=== PATIENT | male | born 1960 | race African-American/Black ===

== ENCOUNTER → 2016-06-21 | Emergency (ER) | payer OTHER ==
[~2016-06-21] VITALS: Ht 177.8 cm; Wt 81.6 kg
[~2016-06-21] MED LIST: AMLODIPINE BESYLATE 5 MG TABLET ONE; AMLODIPINE BESYLATE 5 MG TABLET PO ONE; IV NS 0.9% 1,000 ML BAG IV ONE; IV NS 0.9% 1,000 ML ONE; IV SET PRIMARY 1 EA INFUS.SET MC ONE; IV SET PRIMARY PUMP SET 1 EA INFUS.SET MC ONE; LORAZEPAM INJ 2 MG/ML VIAL IV ONE; LORAZEPAM INJ 2 MG/ML VIAL ONE; Magnesium 1 GM/2 ML VIAL IV ONE; Magnesium 1GM/D5W 100ML PREMIX 200 ML IV ONE; QUETIAPINE FUMARATE 100 MG TABLET ONE; QUETIAPINE FUMARATE 100 MG TABLET PO SCH; SECONDARY IV SET 1 EA INFUS.SET MC ONE
[2016-06-21 07:33] VITALS: BP 153/92
== END | disposition home or self-care (01) ==
LOC: ER 03:46
DX: F10.239 Alcohol dependence with withdrawal, unspecified (principal); I10 Essential (primary) hypertension; F32.9 Major depressive disorder, single episode, unspecified; Z88.8 Allergy status to other drugs, medicaments and biological substances; Z88.6 Allergy status to analgesic agent; R73.09 Other abnormal glucose; Z91.14 Patient's other noncompliance with medication regimen
CPT/HCPCS: 82962 ×2; 96361; 96374; 96375; 99284; A4606; J2060; J3475; J7030; Z7610

== ENCOUNTER 2018-11-02 18:48 | Emergency (ER) | payer OTHER ==
[~2018-11-02] VITALS: Ht 182.9 cm; Wt 127.0 kg
--- NOTE | 2018-11-02 19:41 | NUR ---
MARIS WALKED IN TO ER. AAOX4. NAD NOTED, BREATHING EVEN AND UNLABORED. AMUBULATORY. PT IS PLEASANT, COMPLAINT AND COOPERATIVE. PT CAME IN FOR SUICIDAL IDEATION EVIDENCED BY PT VERBALIZING THAT HE HEARS SCREAMING VOICES ORDERING HIM TO HURT HIMSELF BY RUNNING INTO TRAFFIC AND OVERDOSE WITH PILLS FOR THE PAST WEEK. PT DENIES HI OR PLANS TO HURTS OTHERS. PT REPORTS BEING OFF HIS MEDICATION, SEROQUEL AND PROZAC FOR THE PAST 3 WEEKS. PT TO ER BED 14. STRIPPED OF PRESONAL BELONGINGS AND PLACED UNDER THE SINK BY THE NURSING STATION. SECURITY AT BEDSIDE FOR WANDING. SITTER AT BEDSIDE PART OF SUICIDE PRECAUTION. AWAITING MD MARIA M VORA.
--- NOTE | 2018-11-02 19:41 | NUR ---
Note undone in EDM - 11/02/18 at 1945 by ARIK MARIS WALKED IN TO ER. AAOX4. NAD NOTED, BREATHING EVEN AND UNLABORED. AMUBULATORY. PT IS PLEASANT, COMPLAINT AND COOPERATIVE. PT CAME IN FOR SUICIDAL IDEATION EVIDENCED BY PT VERBALIZING THAT HE HEARS SCREAMING VOICES ORDERING HIM TO HURT HIMSELF BY RUNNING INTO TRAFFIC AND OVERDOSE WITH PILLS FOR THE PAST WEEK. PT REPORTS BEING OFF HIS MEDICATION, SEROQUEL AND PROZAC FOR THE PAST 3 WEEKS. PT TO ER BED 14. STRIPPED OF PRESONAL BELONGINGS AND PLACED UNDER THE SINK BY THE NURSING STATION. SECURITY AT BEDSIDE FOR WANDING. SITTER AT BEDSIDE PART OF SUICIDE PRECAUTION. AWAITING MD MARIA M VORA.
[2018-11-02 20:09] LABS: BASOPHILS # (AUTO) 0.1 /CMM (0.0-0.2); BASOPHILS % (AUTO) 1.1 % (0.0-2.0); EOSINOPHILS % (AUTO) 3.9 % (0.0-6.0); HEMATOCRIT 43 % (39-51); HEMOGLOBIN 14.4 g/dL (13.5-17.5); LYMPHOCYTES # (AUTO) 3.1 /CMM (0.8-4.8); LYMPHOCYTES % (AUTO) 32.9 % (20.0-44.0); MEAN CORPUSCULAR HGB CONC 33 g/dl (31.0-36.0); MEAN CORPUSCULAR VOLUME 86 fL (80-96); MONOCYTES # (AUTO) 0.6 /CMM (0.1-1.30); MONOCYTES % (AUTO) 6.3 % (2.0-12.0); NEUTROPHILS # (AUTO) 5.3 /CMM (1.8-8.9); NEUTROPHILS % (AUTO) 55.8 % (43.0-81.0); PLATELET COUNT (AUTO) 294 /CMM (150-450); RED BLOOD CELL COUNT(AUTO) 5.04 MIL/uL (4.5-6.0); WHITE BLOOD COUNT (AUTO) 9.4 K/uL (4.3-11.0)
[2018-11-02 20:12] LABS: APPEARANCE,URINE Clear (CLEAR); BILIRUBIN,URINE Negative (NEGATIVE); BLOOD, URINE Negative Ery/uL (NEGATIVE); COLOR,URINE Yellow (YELLOW); KETONES,URINE Negative (NEGATIVE); LEUKOCYTE ESTERASE ,URINE Negative (NEGATIVE); NITRITE, URINE Negative (NEGATIVE); PROTEIN,URINE Negative (NEGATIVE); UGLUCOSE Negative (NEGATIVE); UROBILINOGEN,URINE 0.2 EU/dL (0.2)
--- NOTE | 2018-11-02 20:30 | NUR ---
PT PROVIDED WITH FOOD.
[2018-11-02 21:45] LABS: CARBON DIOXIDE 25 mmol/L (21-32); CHLORIDE 101 mmol/L (98-107); CREATININE 0.9 mg/dL (0.6-1.3); GLUCOSE 97 mg/dL (74-106); SODIUM SERUM 136 mmol/L (136-145); UREA NITROGEN, BLOOD 13 mg/dL (7-18)
[2018-11-02 21:56] LABS: ACETAMINOPHEN < 5 ug/ml (10-30); ALANINE AMINOTRANSFERASE 28 U/L (12-78); ALBUMIN 3.4 g/dL (3.4-5.0); ALKALINE PHOSPHATASE 82 U/L (46-116); ASPARTATE AMINOTRANSFERASE 22 U/L (15-37); BILIRUBIN,TOTAL 0.1 mg/dL (0.2-1.0); SALICYLATE 4.1 mg/dL (2.8-20.0); TOTAL PROTEIN, SERUM 7.8 g/dL (6.4-8.2)
[2018-11-02 22:04] LABS: ALCOHOL, BLOOD 80 mg/dL (0-0)
--- NOTE | 2018-11-02 22:14 | NUR ---
OPERATOR CONTROL ROOM ART ETA 1 HR
--- NOTE | 2018-11-02 23:14 | NUR ---
ADRIANA LAU LCSW AT BEDSIDE FOR EVAL.
--- NOTE | 2018-11-03 00:38 | NUR ---
PT ACCEPTED TO [facility] MD: DR. CONTRERAS AND DR. CHOUDHURY BED ASSIGNMENT: [id number]
--- NOTE | 2018-11-03 00:45 | NUR ---
GAVE REPORT TO SHELTON FROM [facility] FOR FRANNIE
--- NOTE | 2018-11-03 01:05 | NUR ---
CONTACTED CALL THE CAR FOR TRANSPORTATION. [facility] ETA 0200. TRIP NUMBER [id number]
[2018-11-03 01:43] VITALS: BP 148/82
--- NOTE | 2018-11-03 01:46 | NUR ---
GAVE REPORT TO [facility] FOR TRANSPORTATION FRANNIE
== END 2018-11-03 01:55 ==
LOC: ER 18:48
DX: R45.851 Suicidal ideations (principal); I10 Essential (primary) hypertension; F17.210 Nicotine dependence, cigarettes, uncomplicated; Z88.6 Allergy status to analgesic agent; Z88.8 Allergy status to other drugs, medicaments and biological substances; Z60.2 Problems related to living alone
CPT/HCPCS: 36415; 80048; 80076; 80305; 80307; 80329; 81001; 85025; 99285; G0480; 81000-TC

== ENCOUNTER 2020-08-08 11:45 | Emergency (ER) | payer OTHER ==
[~2020-08-08] VITALS: Ht 182.9 cm; Wt 112.9 kg
--- NOTE | 2020-08-08 12:10 | NUR ---
BIBS TO ER BED 13. AAOX4. NOT IN RESP DISTRESS. AMBULATORY. CAME IN SEEKING VOLUNTARY ADMISSION FOR HAVING SUICIDAL IDEATIONS. PER PT, HE HAS BEEN HEARING VOICES FOR AA MONTH TELLING HIM TO HURT HIM SELF. PT HAVE THOUGHTS OF RUNNING INTO TRAFFIC. PT ALSO REPORTS THAT HE HAS BEEN OFF HIS MEDICATION FOR MONTHS. PT DENIES HI. PT IS COOPERATIVE, CALM AND COMPLIANT. PT IS GOWNED, BELONGINGS PLACED IN LOCKER, VISUAL BODY CHECK AND 1:1 SITTER AT BEDSIDE. URINE COLLECTED. AWAITING MD FOR EVAL.
[2020-08-08 12:31] LABS: BASOPHILS # (AUTO) 0.1 /CMM (0.0-0.2); BASOPHILS % (AUTO) 1.2 % (0.0-2.0); EOSINOPHILS % (AUTO) 6.2 % (0.0-6.0); HEMATOCRIT 40 % (39-51); HEMOGLOBIN 12.9 g/dL (13.5-17.5); LYMPHOCYTES # (AUTO) 2.6 /CMM (0.8-4.8); LYMPHOCYTES % (AUTO) 27.9 % (20.0-44.0); MEAN CORPUSCULAR HGB CONC 33 g/dl (31.0-36.0); MEAN CORPUSCULAR VOLUME 95 fL (80-96); MONOCYTES # (AUTO) 0.7 /CMM (0.1-1.30); MONOCYTES % (AUTO) 7.9 % (2.0-12.0); NEUTROPHILS # (AUTO) 5.2 /CMM (1.8-8.9); NEUTROPHILS % (AUTO) 56.8 % (43.0-81.0); PLATELET COUNT (AUTO) 228 /CMM (150-450); RED BLOOD CELL COUNT(AUTO) 4.17 MIL/uL (4.5-6.0); WHITE BLOOD COUNT (AUTO) 9.2 K/uL (4.3-11.0)
[2020-08-08 12:36] LABS: BILIRUBIN,URINE Negative (NEGATIVE); COLOR,URINE YELLOW (YELLOW); LEUKOCYTE ESTERASE ,URINE Negative (NEGATIVE); NITRITE, URINE Negative (NEGATIVE); PH,URINE 5.5 (5.0-8.0); PROTEIN,URINE Negative (NEGATIVE); UGLUCOSE Negative (NEGATIVE); UROBILINOGEN,URINE 0.2 EU/dL (0.2)
[2020-08-08 12:38] LABS: CALCIUM, SERUM 8.8 mg/dL (8.5-10.1); CREATININE 0.7 mg/dL (0.6-1.3); POTASSIUM 4.1 mmol/L (3.5-5.1)
[2020-08-08 12:45] LABS: ALBUMIN 3.1 g/dL (3.4-5.0); BILIRUBIN,DIRECT 0.1 mg/dL (0.0-0.2); BILIRUBIN,TOTAL 0.1 mg/dL (0.2-1.0); TOTAL PROTEIN, SERUM 7.6 g/dL (6.4-8.2)
--- NOTE | 2020-08-08 13:06 | NUR ---
LAB CALLED - COVID NEGATIVE
--- NOTE | 2020-08-08 14:27 | NUR ---
SOCIAL ORKER AT BEDSIDE
--- NOTE | 2020-08-08 14:30 | NUR ---
"SS Consult : SS consult requested for: SI+. REX met with pt. bedside. The pt. is a 59 year old Black male seeking medical attention for SI. The pt. SI a&0 x 4. Pt. states he has SI with plan to drink alcohol and run into traffic. REX assessed pt.s mental health Hx. Pt. stated he has been diagnosed with Schizoaffective disorder and has stopped taking prescribed psychotropic medication because I thought I was fine. REX offered pt. psych placement for treatment and pt. is agreeable. Pt. states he lives with a friend at [address] [facility] [address]. Pt. stated he has no support system as all his family has . Pt. stated he drink alcohol daily and does not feel it is a problem for him. Pt. denies HI and denies hallucinations. Plan: REX referred pt. to [facility] [[address] [place] [address] ] for inpatient psychiatric treatment. Substance Abuse resources provided included: [facility] Substance Abuse Self-Helpline ([facility]) ; CRI [facility]LP [address] [facility] [place] [address] ; [facility] [address] [facility] [address] ; [facility] Rehabilitation Program [address] [facility] [address] ; [facility] [phone] ; [facility] Treatment [facility] 4940 [facility] [address] ; [facility] [address] [facility] [address] ; [facility] Substance Abuse Helpline([facility])-[facility] ; [facility] ; [facility] [place]; [facility] [place]; [facility] [place]; [facility] [place]; [facility] [place]; [facility]; [facility]; [facility], [facility]. [facility]; Alcoholics Anonymous -SFV; Jc-Plmg-Mszsptm ; Marijuana Anonymous -SFV; Narcotics Anonymous www.na.org; Year-round shelters: [place] [facility] [address] [place], [place] [phone] ; [facility] [address] [place] [address]; [place] [facility] Bfjjddm6135 [facility] [address] Winter Shelters: [facility] Provider: Cl[facility] Address: [address] [place], [address] # of Beds: 47 Population Served: [facility] 6 | [facility] Edna [facility] Provider: [facility] Last Address: [address], [address] # of Beds: 66 Population Served: [facility] [employer]uel [place] Provider: First to Serve Address: [address] [facility], [address] # of Beds: 56 Population Served: [facility] Javy DaryKartik [place] Provider: [facility]/Ms. Valenzuel[facility] House Address: [address] [facility], [address] # of Beds: 49 Population Served: [facility] 8 | [facility] Provider: First to Serve Address: [address] [facility], [address] # of Beds: 37 Population Served: [facility] Hygiene: [facility] Center[facility]: [address] [address] ; [facility] [address] [facility] ; [facility] [address], [place] . Food Resources: [facility] at [facility]- [address] [place]; Meet Each Need with Dignity ([facility]) [address] [place]; [facility] 1517 [facility]; [facility] [address] [facility]. Mental Health resources provided: [facility] [address] [place], [place] [address] ; [facility] [address] [facility] [address], [place], [place] [phone] ; [facility] [address] [place], [place] [phone] ; [facility] [place], [place] [phone] Healthcare Clinics: [facility] [address] [facility], [address] [place]. [place] ; [facility] [address] [facility] [address] [place] [address]; [facility] Health [place] [address] [facility]. [place] [phone] Counseling--Outpatient [facility] [address] [facility], [place] [address] (Specializes in in-depth psychotherapy for emotional distress: anxiety, depression, interpersonal conflicts, life transitions, childhood abuse) [facility] [address] [place], [place] [phone] (Assist with solving problem marital difficulties, separation & divorce, aging parents, & grief, chronic & terminal illness) [facility] [address] [place], [place] [phone] (Deal with loss & grief, anxiety, marital difficulties) Homebound/Mental Health Services [address] [facility], [address] [place] [address] (Provide in-home mental services to people who are incapable of leaving their homes) [facility]eds of the Elderly Senior Service/Resource Center [address] [place] [address] [facility] [address] [place], [place] [address] PSYCHIATRIC OUTPATIENT SERVICES [facility] Partial Hospitalization and Intensive Outpatient Program (Managed Care and Jeffrey Only)[address] [facility] [phone] [facility] Partial Hospitalization and Outpatient Yijaeqw[address] [place], [place] [phone] [facility] Partial Hospitalization and Outpatient Znngacy[address] [place], [place] [phone] [facility] Ydm[address] [place], [place] [phone] [facility] Partial Hospitalization and Outpatient Sjwyteq14381 [facility] [place], [phone] "
[2020-08-08] MEDS ORDERED: ACETAMINOPHEN 325 MG TABLET ONE (15:08)
[2020-08-08] MEDS ORDERED: ACETAMINOPHEN 325 MG TABLET PO ONE (15:30)
--- NOTE | 2020-08-08 15:48 | NUR ---
REPORT GIVEN TO FESTUS FROM [facility] [place] [facility] [phone]
--- NOTE | 2020-08-08 16:09 | NUR ---
CALLED [facility] 45 MINS. PER ANURADHA
[2020-08-08 16:50] VITALS: BP 147/81
--- NOTE | 2020-08-08 17:33 | NUR ---
PT LEFT ON GURNEY VIA AMBULANCE WITH 2 EMT AT BEDSIDE ON STABLE CONDITION. NAD NOTED. PT IS AMBULATORY. REPORT GIVEN TO AMBULANCE STAFF. PT'S BELONGING WAS GIVEN TO PROCESS MACHINE OPERATOR.
== END 2020-08-08 17:33 ==
LOC: ER 11:51
DX: R45.851 Suicidal ideations (principal); I10 Essential (primary) hypertension; Z88.8 Allergy status to other drugs, medicaments and biological substances; Z20.822 Contact with and (suspected) exposure to COVID-19; F17.200 Nicotine dependence, unspecified, uncomplicated; Z86.59 Personal history of other mental and behavioral disorders
CPT/HCPCS: 36415; 80048; 80076; 80299; 80307; 80320; 81003; 85025; 87426; 99285; C9803; G0480

== ENCOUNTER 2020-12-28 15:22 | Emergency (ER) | payer OTHER ==
[~2020-12-28] VITALS: Ht 182.9 cm; Wt 113.4 kg
--- NOTE | 2020-12-28 15:22 | NUR ---
PT BIB SELF C/O SI PLAN IS TO RUN INTO THE TRAFFIC, REQUESTING VOLUNTARY PSYCH ADMISSION FOR [facility]. PT IS AAOX4, NOT IN RESPIRATORY DISTRESS, V/S STABLE, SITTER AT BEDSIDE. WILL CONTINUE TO MONITOR.
--- NOTE | 2020-12-28 15:52 | NUR ---
PT SEEN AND EXAMINED BY .
--- NOTE | 2020-12-28 15:59 | NUR ---
URINE SPECIMEN COLLECTED AND SENT TO LAB.
--- NOTE | 2020-12-28 16:08 | NUR ---
ER PHLEB AT BEDSIDE FOR BLOOD DRAW.
--- NOTE | 2020-12-28 16:11 | NUR ---
COVID SPECIMEN OBTAINED AND SENT TO LAB.
[2020-12-28 16:28] LABS: BASOPHILS # (AUTO) 0.1 K/uL (0.0-0.2); BASOPHILS % (AUTO) 0.9 % (0.0-2.0); EOSINOPHILS % (AUTO) 2.8 % (0.0-6.0); HEMATOCRIT 38 % (39-51); HEMOGLOBIN 12.7 g/dL (13.5-17.5); LYMPHOCYTES # (AUTO) 2.9 K/uL (0.8-4.8); LYMPHOCYTES % (AUTO) 50.3 % (20.0-44.0); MEAN CORPUSCULAR HGB CONC 33 g/dl (31.0-36.0); MEAN CORPUSCULAR VOLUME 86 fL (80-96); MONOCYTES # (AUTO) 0.4 K/uL (0.1-1.30); MONOCYTES % (AUTO) 6.5 % (2.0-12.0); NEUTROPHILS # (AUTO) 2.3 K/uL (1.8-8.9); NEUTROPHILS % (AUTO) 39.5 % (43.0-81.0); PLATELET COUNT (AUTO) 128 K/uL (150-450); RED BLOOD CELL COUNT(AUTO) 4.47 MIL/uL (4.5-6.0); WHITE BLOOD COUNT (AUTO) 5.7 K/uL (4.3-11.0)
[2020-12-28 16:43] LABS: BILIRUBIN,URINE SMALL (NEGATIVE); COLOR,URINE YELLOW (YELLOW); LEUKOCYTE ESTERASE ,URINE NEGATIVE (NEGATIVE); NITRITE, URINE NEGATIVE (NEGATIVE); PROTEIN,URINE NEGATIVE (NEGATIVE); UGLUCOSE NEGATIVE (NEGATIVE)
[2020-12-28 16:50] LABS: CALCIUM, SERUM 8.7 mg/dL (8.5-10.1); CARBON DIOXIDE 21 mmol/L (21-32); CHLORIDE 101 mmol/L (98-107); CREATININE 0.8 mg/dL (0.6-1.3); GLUCOSE 82 mg/dL (74-106); POTASSIUM 4.1 mmol/L (3.5-5.1); SODIUM SERUM 136 mmol/L (136-145); UREA NITROGEN, BLOOD 12 mg/dL (7-18)
[2020-12-28 16:53] LABS: ALANINE AMINOTRANSFERASE 51 U/L (12-78); ALBUMIN 3.4 g/dL (3.4-5.0); ALCOHOL, BLOOD 138 mg/dL (0-0); ALKALINE PHOSPHATASE 73 U/L (46-116); ASPARTATE AMINOTRANSFERASE 52 U/L (15-37); BILIRUBIN,DIRECT 0.2 mg/dL (0.0-0.2); BILIRUBIN,TOTAL 0.5 mg/dL (0.2-1.0); TOTAL PROTEIN, SERUM 7.8 g/dL (6.4-8.2)
[2020-12-28 16:54] LABS: BACTERIA,URINE RARE /HPF (None Seen); MUCUS,URINE Many /LPF (None Seen); SQUAMOUS EPITHELIAL CELL,UR 0-2 /HPF (None Seen)
[2020-12-28 16:56] LABS: ACETAMINOPHEN < 0 ug/ml (10-30)
--- NOTE | 2020-12-28 19:26 | NUR ---
CLINICALS WERE FAXED TO [facility]
[2020-12-28] MEDS ORDERED: MAG HYDROX/AL HYDROX/SIMETH 30 ML UDC PO ONE (21:00)
[2020-12-28] MEDS ORDERED: LIDOCAINE VISCOUS 2% UD 15 ML UDC MM ONE (21:00)
[2020-12-28] MEDS ORDERED: LIDOCAINE VISCOUS 2% UD 15 ML UDC ONE (21:56)
[2020-12-28] MEDS ORDERED: MAG HYDROX/AL HYDROX/SIMETH 30 ML UDC ONE (21:57)
--- NOTE | 2020-12-28 23:34 | NUR ---
CALLED [facility] FOR UPDATE, STILL WAITING FOR REVIEW FROM CLERICAL ASSOCIATE
--- NOTE | 2020-12-29 00:51 | NUR ---
PT ACCEPTED [facility] UNDER THE CARE OF DR. GOULD. CALL [phone] FOR REPORT.
--- NOTE | 2020-12-29 01:10 | NUR ---
CALLED [facility], NO TRANSPORTS UNTIL NOON.
--- NOTE | 2020-12-29 01:11 | NUR ---
CALLED [facility], NO TRANSPORTS UNTIL 0700.
--- NOTE | 2020-12-29 01:30 | NUR ---
CALLED [facility] FOR TRANSPORTATION TO [facility] [place]. TERRAZZO POLISHER HELPER WILL CALL BACK WITH ETA. RES#[id number]
--- NOTE | 2020-12-29 01:43 | NUR ---
[facility] ETA 0313
--- NOTE | 2020-12-29 03:34 | NUR ---
report given to VICTORINO Villagomez cytotechnologist supervisor
[2020-12-29 03:35] VITALS: BP 163/92
--- NOTE | 2020-12-29 03:45 | NUR ---
GAVE REPORT TO EMS
== END 2020-12-29 03:35 ==
LOC: ER 15:28
DX: R45.851 Suicidal ideations (principal); Z59.0 Homelessness; F10.129 Alcohol abuse with intoxication, unspecified; F12.90 Cannabis use, unspecified, uncomplicated; Y90.6 Blood alcohol level of 120-199 mg/100 ml; Z20.822 Contact with and (suspected) exposure to COVID-19
CPT/HCPCS: 36415; 80048; 80076; 80143; 80307; 80320; 81001; 83605; 85025; 87426; 99285; C9803; G0480

== ENCOUNTER 2021-06-01 07:25 | Emergency (ER) | payer OTHER ==
[~2021-06-01] VITALS: Ht 182.9 cm; Wt 108.9 kg
[2021-06-01 09:22] LABS: BASOPHILS % (AUTO) 0.8 % (0.0-2.0); EOSINOPHILS % (AUTO) 1.4 % (0.0-6.0); HEMATOCRIT 41 % (39-51); HEMOGLOBIN 13.4 g/dL (13.5-17.5); LYMPHOCYTES # (AUTO) 1.6 K/uL (0.8-4.8); LYMPHOCYTES % (AUTO) 28.6 % (20.0-44.0); MEAN CORPUSCULAR HGB CONC 33 g/dl (31.0-36.0); MEAN CORPUSCULAR VOLUME 89 fL (80-96); MONOCYTES # (AUTO) 0.4 K/uL (0.1-1.30); MONOCYTES % (AUTO) 7.5 % (2.0-12.0); NEUTROPHILS # (AUTO) 3.5 K/uL (1.8-8.9); NEUTROPHILS % (AUTO) 61.7 % (43.0-81.0); PLATELET COUNT (AUTO) 299 K/uL (150-450); RED BLOOD CELL COUNT(AUTO) 4.63 MIL/uL (4.5-6.0); WHITE BLOOD COUNT (AUTO) 5.6 K/uL (4.3-11.0)
[2021-06-01 09:27] LABS: BILIRUBIN,URINE SMALL (NEGATIVE); COLOR,URINE YELLOW (YELLOW); LEUKOCYTE ESTERASE ,URINE NEGATIVE (NEGATIVE); NITRITE, URINE NEGATIVE (NEGATIVE); PH,URINE 5.5 (5.0-8.0); PROTEIN,URINE 30 mg/dl (NEGATIVE); UGLUCOSE NEGATIVE (NEGATIVE)
[2021-06-01 09:39] LABS: CALCIUM, SERUM 9.1 mg/dL (8.5-10.1); CARBON DIOXIDE 22 mmol/L (21-32); CHLORIDE 95 mmol/L (98-107); CREATININE 0.8 mg/dL (0.6-1.3); GLUCOSE 105 mg/dL (74-106); POTASSIUM 4.4 mmol/L (3.5-5.1); SODIUM SERUM 133 mmol/L (136-145); UREA NITROGEN, BLOOD 17 mg/dL (7-18)
[2021-06-01 09:44] LABS: ALANINE AMINOTRANSFERASE 42 U/L (12-78); ALBUMIN 3.5 g/dL (3.4-5.0); ALCOHOL, BLOOD 74 mg/dL (0-0); ALKALINE PHOSPHATASE 98 U/L (46-116); ASPARTATE AMINOTRANSFERASE 34 U/L (15-37); BILIRUBIN,DIRECT 0.1 mg/dL (0.0-0.2); BILIRUBIN,TOTAL 0.3 mg/dL (0.2-1.0); TOTAL PROTEIN, SERUM 8.3 g/dL (6.4-8.2)
[2021-06-01 09:48] LABS: ACETAMINOPHEN < 2 ug/ml (10-30)
[2021-06-01 09:52] LABS: BACTERIA,URINE Rare /HPF (None Seen); RBC,URINE NONE SEEN /HPF (0-2); SQUAMOUS EPITHELIAL CELL,UR Few /HPF (None Seen); WBC,URINE NONE SEEN /HPF (0-3)
[2021-06-01] MEDS ORDERED: LORAZEPAM 1 MG TABLET PO ONE ×2 (11:00→14:00)
[2021-06-01] MEDS ORDERED: LORAZEPAM 1 MG TABLET ONE ×2 (11:07→14:13)
[2021-06-01 22:30] VITALS: BP 147/56
== END 2021-06-01 22:40 ==
LOC: ER 07:27
DX: R45.851 Suicidal ideations (principal); F12.10 Cannabis abuse, uncomplicated; Z20.822 Contact with and (suspected) exposure to COVID-19; F25.9 Schizoaffective disorder, unspecified; I10 Essential (primary) hypertension; F10.10 Alcohol abuse, uncomplicated; Y90.3 Blood alcohol level of 60-79 mg/100 ml
CPT/HCPCS: 36415; 80048; 80076; 80143; 80307; 80320; 81001; 85025; 87426; 99285; C9803; G0480

== ENCOUNTER 2022-03-01 12:15 | Emergency (ER) | payer OTHER ==
[~2022-03-01] VITALS: Ht 182.9 cm; Wt 115.7 kg
--- NOTE | 2022-03-01 12:25 | NUR ---
RAPID COVID SWAB DONE AND SENT TO LAB
--- NOTE | 2022-03-01 12:30 | NUR ---
PATIENT WANDED BY SECURITY, BELONGINGS TO PATIENT LOCKER. CHANGED INTO HOSPITAL GOWN.
[2022-03-01 12:55] LABS: BASOPHILS # (AUTO) 0.1 K/uL (0.0-0.2); BASOPHILS % (AUTO) 0.9 % (0.0-2.0); EOSINOPHILS % (AUTO) 0.2 % (0.0-6.0); HEMATOCRIT 40 % (39-51); HEMOGLOBIN 13.3 g/dL (13.5-17.5); LYMPHOCYTES # (AUTO) 2.7 K/uL (0.8-4.8); LYMPHOCYTES % (AUTO) 37.5 % (20.0-44.0); MEAN CORPUSCULAR HGB CONC 33 g/dl (31.0-36.0); MEAN CORPUSCULAR VOLUME 84 fL (80-96); MONOCYTES # (AUTO) 0.5 K/uL (0.1-1.30); MONOCYTES % (AUTO) 7.2 % (2.0-12.0); NEUTROPHILS # (AUTO) 3.9 K/uL (1.8-8.9); NEUTROPHILS % (AUTO) 54.2 % (43.0-81.0); PLATELET COUNT (AUTO) 313 K/uL (150-450); RED BLOOD CELL COUNT(AUTO) 4.74 MIL/uL (4.5-6.0); WHITE BLOOD COUNT (AUTO) 7.2 K/uL (4.3-11.0)
--- NOTE | 2022-03-01 13:00 | NUR ---
PATIENT NOT ABLE TO PROVIDE URINE SAMPLE AT THIS TIME. MADE AWARE
[2022-03-01 13:02] LABS: CALCIUM, SERUM 8.5 mg/dL (8.5-10.1); CREATININE 0.9 mg/dL (0.6-1.3)
[2022-03-01 13:08] LABS: ALBUMIN 3.9 g/dL (3.4-5.0); BILIRUBIN,DIRECT 0.1 mg/dL (0.0-0.2); BILIRUBIN,TOTAL 0.3 mg/dL (0.2-1.0); TOTAL PROTEIN, SERUM 8.3 g/dL (6.4-8.2)
--- NOTE | 2022-03-01 13:36 | NUR ---
URINE SAMPLE COLLECTED AND SENT TO LAB
[2022-03-01 14:12] LABS: BILIRUBIN,URINE NEGATIVE (NEGATIVE); COLOR,URINE YELLOW (YELLOW); LEUKOCYTE ESTERASE ,URINE NEGATIVE (NEGATIVE); NITRITE, URINE NEGATIVE (NEGATIVE); PH,URINE 5.5 (5.0-8.0); PROTEIN,URINE 1+ mg/dl (NEGATIVE); UGLUCOSE NEGATIVE (NEGATIVE); UROBILINOGEN,URINE 0.2 EU/dL (0.2)
[2022-03-01 14:14] LABS: BACTERIA,URINE Rare /HPF (None Seen); RBC,URINE 0-2 /HPF (0-2); SQUAMOUS EPITHELIAL CELL,UR Few /HPF (None Seen); WBC,URINE 0-2 /HPF (0-3)
[2022-03-01] MEDS ORDERED: LORAZEPAM 0.5 MG TABLET ONE (17:27)
[2022-03-01] MEDS ORDERED: LORAZEPAM 1 MG TABLET PO ONE (17:30)
--- NOTE | 2022-03-01 19:00 | NUR ---
FAXED CLINICALS TO [facility] INTAKE.
[2022-03-01 19:26] VITALS: BP 136/84
--- NOTE | 2022-03-01 23:14 | NUR ---
ACCEPTED AT [facility] UNDER MD PORTER [phone]
--- NOTE | 2022-03-01 23:22 | NUR ---
SET UP [facility]. ETA [phone] - [phone].
[2022-03-02] MEDS ORDERED: ACETAMINOPHEN ES 500 MG TABLET PO ONE
[2022-03-02] MEDS ORDERED: ACETAMINOPHEN ES 500 MG TABLET ONE (00:05)
--- NOTE | 2022-03-02 00:19 | NUR ---
report given to ij
--- NOTE | 2022-03-02 04:02 | NUR ---
PATIENT WAS PICKED UP BY [facility] AND TRANSFERRED TO [facility] IN STABLE CONDITION. BELONGINGS PICKED UP
== END 2022-03-02 04:04 ==
LOC: ER 12:17
DX: R45.851 Suicidal ideations (principal); F25.9 Schizoaffective disorder, unspecified; J45.909 Unspecified asthma, uncomplicated; I10 Essential (primary) hypertension; Z88.8 Allergy status to other drugs, medicaments and biological substances; F12.10 Cannabis abuse, uncomplicated; F10.10 Alcohol abuse, uncomplicated; Z20.822 Contact with and (suspected) exposure to COVID-19; F32.A Depression, unspecified
CPT/HCPCS: 99285; 85025; 80048; 80076; 81001; 36415; 87426; 80143; 80320; 80307; C9803; G0480